=== PATIENT | male | born 1975 | race Caucasian/White ===

== ENCOUNTER → 2021-12-16 | Outpatient (CLI) | payer OTHER ==
--- NOTE | 2021-12-16 10:16 | Diagnostic Imaging Report ---
INDICATION: Chronic right knee pain. TIME OF EXAM: 9:31 AM. FINDINGS: Three views of the right knee were obtained. Alignment is normal. Joint spaces are well-maintained. The articular surfaces are smooth. No fracture, dislocation, or effusion is seen. IMPRESSION: No acute bony abnormality is detected. Dictated by: Dictated on workstation # [id number]
--- NOTE | 2021-12-16 10:16 | Diagnostic Imaging Report ---
INDICATION: Chronic back pain. TIME OF EXAM: 9:30 AM. FINDINGS: Three views of the lumbar spine were obtained. The curvature and alignment are normal. The vertebral body heights and disc spaces are well-maintained. No fracture or subluxation is identified. There are some mild atherosclerotic calcifications in the abdominal aorta. IMPRESSION: No acute bony abnormality is detected. Dictated by: Dictated on workstation # [id number]
== END ==
LOC: RAD 09:00
PROVIDERS: ATTEND Nurse Practitioner Family
DX: M54.50 Low back pain, unspecified (principal); M25.561 Pain in right knee
CPT/HCPCS: 72100; 73562

== ENCOUNTER → 2022-01-07 | Outpatient (CLI) | payer OTHER ==
--- NOTE | 2022-01-07 08:18 | Diagnostic Imaging Report ---
INDICATION: Pre-MRI screening. TIME OF EXAM: 8:13 AM Two views of the orbits were obtained. There has been postoperative changes to the right orbit. There are plates and screws transfixing the lateral as well as the inferior orbital medellin. No intraorbital radiopaque foreign body is seen. IMPRESSION: Postoperative changes to the right orbit, as described. Dictated by: Dictated on workstation # [id number]
--- NOTE | 2022-01-07 09:31 | Diagnostic Imaging Report ---
PROCEDURE: MRI lumbar spine. TECHNIQUE: Multiplanar, multisequence MRI of the lumbar spine was performed without contrast. INDICATION: Low back pain. COMPARISON: Radiographs from 12/16/2021. FINDINGS: The last well-formed disc space will be labeled L5-S1 for the purposes of this examination. Alignment is normal. There is no spondylolisthesis. Vertebral body heights are preserved. There is mild disc height loss and decreased T2 signal at L5-S1. No acute fracture is seen. The conus terminates in appropriate position. Soft tissues about the lumbar spine demonstrate no acute abnormality. T12-L1: No disc bulge. No spinal canal or foraminal stenosis. L1-L2: No significant disc bulge. No spinal canal or foraminal stenosis. L2-L3: No significant disc bulge. No spinal canal or foraminal stenosis. L3-L4: No significant disc bulge. No spinal canal or foraminal stenosis. L4-L5: Mild disc bulge with posterior annular fissure and small central protrusion. Minimal spinal canal narrowing. Mild bilateral foraminal narrowing. L5-S1: Disc bulge with small central disc protrusion causing mild spinal canal narrowing and moderate effacement of the lateral recesses. There is severe bilateral foraminal stenosis. IMPRESSION: Mild degenerative disc disease in the lower lumbar spine with mild spinal canal narrowing. There is severe foraminal stenosis at L5-S1 bilaterally. Dictated by: Dictated on workstation # [id number]
--- NOTE | 2022-01-07 10:24 | Diagnostic Imaging Report ---
PROCEDURE: MRI right joint lower extremity without contrast. TECHNIQUE: Multiplanar, multisequence non contrast-enhanced MRI of the right lower extremity was accomplished. INDICATION: Right knee pain COMPARISON: Radiographs from 12/16/2021 FINDINGS: No acute fracture is seen in the right knee. Alignment appears normal. There is no significant joint effusion. The articular cartilage in the patellofemoral compartment appears intact. The articular cartilage in the medial and lateral compartments also has no full-thickness defects, with mild heterogeneity and surface irregularity at the medial compartment. There is low signal on the coronal STIR sequence. No definite tear is seen of the medial or lateral menisci. The anterior and posterior cruciate ligaments are intact. The medial collateral ligament is intact. The lateral collateral ligamentous complex is intact. The extensor mechanism is intact. The medial and lateral retinacula are intact. Soft tissues about the knee are otherwise unremarkable. IMPRESSION: 1. No meniscus or ligament tear is identified in the right knee. 2. Mild cartilage irregularity in the medial compartment with no full-thickness defects seen. Dictated by: Dictated on workstation # [id number]
== END ==
LOC: RAD 08:00
PROVIDERS: ATTEND Family Medicine
DX: Z01.818 Encounter for other preprocedural examination (principal); M51.26 Other intervertebral disc displacement, lumbar region; M51.27 Other intervertebral disc displacement, lumbosacral region; M51.36 Other intervertebral disc degeneration, lumbar region; M51.37 Other intervertebral disc degeneration, lumbosacral region; M48.061 Spinal stenosis, lumbar region without neurogenic claudication; M48.07 Spinal stenosis, lumbosacral region; M25.561 Pain in right knee
CPT/HCPCS: 72148; 73721